=== PATIENT | female | born 1965 | race Caucasian/White ===

== ENCOUNTER → 2021-01-15 | Outpatient (CLI) | payer MEDICARE, OTHER ==
[2021-01-15 10:33] LABS: HEMOGLOBIN 14.4 gm/dl (12.3-15.3); RED BLOOD COUNT 4.53 M/UL (4.00-5.10); WHITE BLOOD COUNT 7.6 K/UL (4.5-11.0)
[2021-01-15 11:21] LABS: BUN/CREATININE RATIO 16 (0-10)
[2021-01-16 08:14] LABS: CORTISOL 7.6 ug/dL (.)
[2021-01-16 09:14] LABS: ESTRADIOL 12.7 pg/mL (.); LUTEINIZING HORMONE(LH) 37.3 mIU/mL (.); TESTOSTERONE, SERUM 8 ng/dL (4-50); VITAMIN D, 25-HYDROXY 28.6 ng/mL (30.0-100.0)
[2021-01-16 11:14] LABS: RHEUMATOID ARTHRITIS FACTOR <10.0 IU/mL (0.0-13.9)
[2021-01-16 12:14] LABS: ANTI-DSDNA ANTIBODIES <1 IU/mL (0-9); ANTISCLERODERMA-70 ANTIBODIES <0.2 AI (0.0-0.9); RNP ANTIBODIES 0.8 AI (0.0-0.9); SJOGREN'S ANTI-SS-A <0.2 AI (0.0-0.9)
[2021-01-16 13:14] LABS: ACTIN (SMOOTH MUSCLE) ANTIBODY 11 Units (0-19)
[2021-01-16 15:14] LABS: THYROGLOBULIN ANTIBODY <1.0 IU/mL (0.0-0.9); THYROID PEROXIDASE (TPO) AB 151 IU/mL (0-34)
== END ==
LOC: LAB 08:55
PROVIDERS: Nurse Practitioner Family
DX: E78.2 Mixed hyperlipidemia (principal); N95.1 Menopausal and female climacteric states; F39 Unspecified mood [affective] disorder; M79.606 Pain in leg, unspecified; R68.82 Decreased libido; M25.50 Pain in unspecified joint; R68.89 Other general symptoms and signs; R79.89 Other specified abnormal findings of blood chemistry; R53.83 Other fatigue; R73.09 Other abnormal glucose; E55.9 Vitamin D deficiency, unspecified
CPT/HCPCS: 36415; 80053; 80061; 82533; 82670; 82728; 83002; 83036; 83516; 83540; 83550; 84403; 84443; 84550; 85025; 86038; 86140; 86200; 86225; 86235; 86376; 86431; 86800

== ENCOUNTER 2021-11-16 20:45 | Emergency (ER) | payer MEDICARE, OTHER ==
[2021-11-16 21:18] LABS: HEMOGLOBIN 18.1 gm/dl (12.3-15.3); RED BLOOD COUNT 5.73 M/UL (4.00-5.10); WHITE BLOOD COUNT 14.5 K/UL (4.5-11.0)
[2021-11-16 22:30] LABS: BUN/CREATININE RATIO 7 (0-10)
[2021-11-17] MEDS ORDERED: ZOFRAN 4 MG TAB4 MG PO (03:12)
[2021-11-17] MEDS ORDERED: ZANAFLEX4 MG PO (03:13)
== END 2021-11-17 03:30 | disposition home or self-care (01) ==
LOC: ER1 20:45
PROVIDERS: Physician Assistant
DX: R10.84 Generalized abdominal pain (principal); R11.2 Nausea with vomiting, unspecified; Z76.0 Encounter for issue of repeat prescription; I10 Essential (primary) hypertension; Z90.49 Acquired absence of other specified parts of digestive tract; F17.210 Nicotine dependence, cigarettes, uncomplicated; Z88.8 Allergy status to other drugs, medicaments and biological substances
CPT/HCPCS: 80053; 81001; 85025; 96361; 96374; 96375; 99284; C9113; J2405